=== PATIENT | female | born 1950 | race Caucasian/White ===

== ENCOUNTER → 2024-03-02 06:27 | Outpatient (REF) | payer MEDICARE, SELFPAY | LOC: RAD 06:27 | PROVIDERS: ATTENDING PHYSICIAN Specialist; FAMILY PHYSICIAN Physician Assistant | DX: N20.0 Calculus of kidney (principal) | CPT/HCPCS: 76775 ==

== ENCOUNTER → 2024-03-08 07:05 | Outpatient (REF) | payer MEDICARE, SELFPAY ==
[2024-03-08 08:07] LABS: % Basophils 1.5 % (0-2); % Eosinophils 4.9 % (0-6); % Immature Granulocytes 0.4 % (0-0.5); % Lymphocytes 45.7 % (20.5-51.1); % Monocytes 10.4 % (1.7-9.3); % Neutrophils 37.1 % (42.2-75.2); Absolute Basophils 0.1 10^3/uL (0-0.2); Absolute Eosinophils 0.2 10^3/uL (0-0.7); Absolute Lymphocytes 2.1 10^3/uL (1.2-3.4); Absolute Monocytes 0.5 10^3/uL (0.1-0.6); Absolute Neutrophils 1.7 10^3/uL (1.4-6.5); Hematocrit 36.6 % (37.0-47.0); Hemoglobin 12.2 g/dL (12.0-16.0); Mean Corp Hgb Conc. 33.3 g/dL (33.0-37.0); Mean Corpuscular Hgb 30.2 pg (27.0-31.0); Mean Corpuscular Volume 90.6 fL (81.0-99.0); Mean Platelet Volume 9.9 fL (7.4-10.4); Nucleated Red Blood Cells % 0 %; Platelet Count 241 10^3/uL (130-400); Red Blood Cell Count 4.04 10^6/uL (4.20-5.40); Red Cell Dist. Width 13.1 % (11.5-14.5); White Blood Cell Count 4.5 10^3/uL (4.8-10.8)
[2024-03-08 08:09] LABS: Urine Albumin Negative (Neg - Trace); Urine Bilirubin Negative (Negative); Urine Character Clear (Clear); Urine Color Yellow; Urine Glucose Negative (Negative); Urine Ketone Negative (Negative); Urine Leukocyte Negative (Negative); Urine Nitrite Negative (Negative); Urine Occult Blood Negative (Negative); Urine Urobilinogen Negative (Neg - 1+)
[2024-03-08 08:36] LABS: Erythrocyte Sed Rate 15 mm/hour (0-20)
[2024-03-08 09:03] LABS: Protein/creatinine Ratio 0.4; Urine Protein 11 mg/dl
[2024-03-08 09:34] LABS: C-Reactive Protein < 5.00 mg/L (0.0-10.00)
[2024-03-08 09:38] LABS: ALT (SGPT) 15 U/L (0-35); AST (SGOT) 29 U/L (14-36); Albumin 4.6 g/dl (3.5-5.0); Alkaline Phosphatase 45 U/L (38-126); Blood Urea Nitrogen 33 mg/dl (7-17); Calcium 9.7 mg/dl (8.4-10.2); Carbon Dioxide 27 mmol/L (22-30); Chloride 97 mmol/L (98-107); Glucose 78 mg/dl (70-99); Potassium 4.4 mmol/L (3.5-5.1); Sodium 134 mmol/L (135-145); Total Bilirubin 0.6 mg/dl (0.2-1.3); Total Protein 7.2 g/dl (6.3-8.2)
[2024-03-08 23:40] LABS: Complement C3 106 mg/dl (88-165)
[2024-03-10 02:14] LABS: ds-DNA Ab, IgG Reflex To Titer 14 IU (0-24)
== END ==
LOC: REG 07:05
PROVIDERS: ATTENDING PHYSICIAN Internal Medicine; FAMILY PHYSICIAN Internal Medicine
DX: E55.9 Vitamin D deficiency, unspecified (principal); G62.9 Polyneuropathy, unspecified; L25.9 Unspecified contact dermatitis, unspecified cause; M32.9 Systemic lupus erythematosus, unspecified; M35.09 Sjogren syndrome with other organ involvement; M81.0 Age-related osteoporosis without current pathological fracture; R21 Rash and other nonspecific skin eruption; R76.8 Other specified abnormal immunological findings in serum
CPT/HCPCS: 36415; 80053; 81003; 82570; 84156; 85025; 85652; 86140; 86160; 86225

== ENCOUNTER → 2024-07-17 09:12 | Outpatient (REF) | payer MEDICARE, SELFPAY | LOC: RAD 09:12 | PROVIDERS: ATTENDING PHYSICIAN Internal Medicine; FAMILY PHYSICIAN Physician Assistant | DX: M81.0 Age-related osteoporosis without current pathological fracture (principal) | CPT/HCPCS: 77080 ==

== ENCOUNTER → 2024-07-25 06:30 | Outpatient (REF) | payer MEDICARE, SELFPAY ==
[2024-07-25 07:37] LABS: ALT (SGPT) 17 U/L (0-35); AST (SGOT) 28 U/L (14-36); Albumin 4.5 g/dl (3.5-5.0); Alkaline Phosphatase 41 U/L (38-126); Blood Urea Nitrogen 28 mg/dl (7-17); Calcium 9.9 mg/dl (8.4-10.2); Carbon Dioxide 26 mmol/L (22-30); Chloride 102 mmol/L (98-107); Glucose 85 mg/dl (70-99); Potassium 4.6 mmol/L (3.5-5.1); Sodium 139 mmol/L (135-145); Total Bilirubin 0.6 mg/dl (0.2-1.3); Total Protein 6.8 g/dl (6.3-8.2)
[2024-07-25 08:33] LABS: TSH 0.51 uIU/ml (0.47-4.68)
== END ==
LOC: REG 06:30
PROVIDERS: ATTENDING PHYSICIAN Internal Medicine Endocrinology, Diabetes & Metabolism; FAMILY PHYSICIAN Physician Assistant; REFERRING PHYSICIAN Internal Medicine Critical Care Medicine
DX: E03.9 Hypothyroidism, unspecified (principal)
CPT/HCPCS: 36415; 80053; 84443

== ENCOUNTER → 2024-09-08 07:45 | Outpatient (REF) | payer MEDICARE, SELFPAY ==
[2024-09-08 09:28] LABS: % Basophils 0.9 % (0-2); % Eosinophils 3.4 % (0-6); % Immature Granulocytes 0.4 % (0-0.5); % Lymphocytes 40.9 % (20.5-51.1); % Monocytes 8.9 % (1.7-9.3); % Neutrophils 45.5 % (42.2-75.2); Absolute Basophils 0.1 10^3/uL (0-0.2); Absolute Eosinophils 0.2 10^3/uL (0-0.7); Absolute Lymphocytes 2.2 10^3/uL (1.2-3.4); Absolute Monocytes 0.5 10^3/uL (0.1-0.6); Absolute Neutrophils 2.4 10^3/uL (1.4-6.5); Hematocrit 40.7 % (37.0-47.0); Hemoglobin 13.2 g/dL (12.0-16.0); Mean Corp Hgb Conc. 32.4 g/dL (33.0-37.0); Mean Corpuscular Hgb 29.4 pg (27.0-31.0); Mean Corpuscular Volume 90.6 fL (81.0-99.0); Mean Platelet Volume 10.2 fL (7.4-10.4); Nucleated Red Blood Cells % 0 %; Platelet Count 261 10^3/uL (130-400); Red Blood Cell Count 4.49 10^6/uL (4.20-5.40); Red Cell Dist. Width 13.2 % (11.5-14.5); White Blood Cell Count 5.3 10^3/uL (4.8-10.8)
[2024-09-08 09:45] LABS: C-Reactive Protein < 5.00 mg/L (0.0-10.00); Urine Albumin Negative (Neg - Trace); Urine Bilirubin Negative (Negative); Urine Character Slightly Cloudy (Clear); Urine Color Yellow; Urine Glucose Negative (Negative); Urine Ketone Negative (Negative); Urine Leukocyte 2+ (Negative); Urine Nitrite Negative (Negative); Urine Occult Blood Negative (Negative); Urine Urobilinogen Negative (Neg - 1+)
[2024-09-08 10:12] LABS: Vitamin D, 25-OH*** 57.6 ng/mL (30-80)
[2024-09-08 10:18] LABS: ALT (SGPT) 19 U/L (0-35); AST (SGOT) 28 U/L (14-36); Albumin 4.8 g/dl (3.5-5.0); Alkaline Phosphatase 38 U/L (38-126); Blood Urea Nitrogen 25 mg/dl (7-17); Calcium 9.7 mg/dl (8.4-10.2); Carbon Dioxide 24 mmol/L (22-30); Chloride 103 mmol/L (98-107); Glucose 75 mg/dl (70-99); Potassium 4.7 mmol/L (3.5-5.1); Sodium 141 mmol/L (135-145); Total Bilirubin 0.5 mg/dl (0.2-1.3); Total Protein 7.4 g/dl (6.3-8.2)
[2024-09-08 10:28] LABS: Protein/creatinine Ratio 0.2; Urine Protein 11 mg/dl
[2024-09-08 10:39] LABS: Erythrocyte Sed Rate 14 mm/hour (0-20)
[2024-09-08 10:43] LABS: Urine Bacteria Many (Negative); Urine Red Blood Cell 0-2 /HPF (0-2); Urine Squamous Cell 0-2 /LPF (Few); Urine White Cell 90-100 /HPF (0-5)
[2024-09-10 01:59] LABS: DNase-B Antibody 94 U/mL (<=259)
[2024-09-10 12:40] LABS: Beta-2-Microglobulin 2.6 mg/L (<=3.0)
[2024-09-11 07:34] LABS: Complement C3 134 mg/dl (88-165); IgA 112 mg/dl (70-400); IgG 878 mg/dl (700-1600); IgM 87 mg/dl (40-230)
== END ==
LOC: REG 07:45
PROVIDERS: ATTENDING PHYSICIAN Internal Medicine; FAMILY PHYSICIAN Physician Assistant; REFERRING PHYSICIAN Internal Medicine Endocrinology, Diabetes & Metabolism
DX: M35.09 Sjogren syndrome with other organ involvement (principal); M81.0 Age-related osteoporosis without current pathological fracture
CPT/HCPCS: 36415; 80053; 81003; 81015; 82232; 82306; 82570; 82784; 83521; 84155; 84156; 84165; 85025; 85652; 86140; 86160; 86215; 86334

== ENCOUNTER → 2024-10-02 07:20 | Outpatient (REF) | payer MEDICARE, SELFPAY | LOC: WDC 07:20 | PROVIDERS: ATTENDING PHYSICIAN Obstetrics & Gynecology Gynecology; FAMILY PHYSICIAN Physician Assistant | DX: Z12.31 Encounter for screening mammogram for malignant neoplasm of breast (principal) | CPT/HCPCS: 77063; 77067 ==

== ENCOUNTER → 2024-11-01 07:29 | Outpatient (REF) | payer MEDICARE, SELFPAY ==
[2024-11-01 08:41] LABS: HDL Cholesterol 73 mg/dl; LDL Cholesterol, Calculated 140 mg/dl; Total Cholesterol 235 mg/dl (50-199); Triglyceride 113 mg/dl (10-149); Very Low Density Lipoprotein 22 mg/dl (0-30)
== END ==
LOC: REG 07:29
PROVIDERS: ATTENDING PHYSICIAN Physician Assistant
DX: Z00.00 Encounter for general adult medical examination without abnormal findings (principal); Z13.220 Encounter for screening for lipoid disorders; I10 Essential (primary) hypertension
CPT/HCPCS: 36415; 80061

== ENCOUNTER → 2024-11-17 10:43 | Outpatient (REF) | payer MEDICARE, SELFPAY | LOC: RAD 10:43 | PROVIDERS: ATTENDING PHYSICIAN Nurse Practitioner Adult Health; FAMILY PHYSICIAN Physician Assistant | DX: J47.9 Bronchiectasis, uncomplicated (principal) | CPT/HCPCS: 71046 ==

== ENCOUNTER → 2025-03-07 06:28 | Outpatient (REF) | payer MEDICARE, SELFPAY ==
[2025-03-07 07:09] LABS: Hematocrit 40.2 % (37.0-47.0); Hemoglobin 13.1 g/dL (12.0-16.0)
[2025-03-07 07:49] LABS: ALT (SGPT) 19 U/L (0-35); AST (SGOT) 25 U/L (14-36); Albumin 4.6 g/dl (3.5-5.0); Alkaline Phosphatase 44 U/L (38-126); Blood Urea Nitrogen 26 mg/dl (7-17); Calcium 9.6 mg/dl (8.4-10.2); Carbon Dioxide 25 mmol/L (22-30); Chloride 104 mmol/L (98-107); Direct Bilirubin 0.1 mg/dl (0.0-0.4); Glucose 96 mg/dl (70-99); Intact PTH 34.2 pg/ml (13.6-85.8); Potassium 4.5 mmol/L (3.5-5.1); Sodium 139 mmol/L (135-145); Total Bilirubin 0.6 mg/dl (0.2-1.3); Total Protein 7.1 g/dl (6.3-8.2); eGFR 52.08
[2025-03-07 07:52] LABS: Vitamin D, 25-OH*** 66.6 ng/mL (30-80)
[2025-03-07 16:16] LABS: Protein/creatinine Ratio 0.3; Urine Protein 9 mg/dl
== END ==
LOC: REG 06:28
PROVIDERS: ATTENDING PHYSICIAN Specialist; FAMILY PHYSICIAN Physician Assistant; REFERRING PHYSICIAN Internal Medicine
DX: N18.31 Chronic kidney disease, stage 3a (principal); M81.0 Age-related osteoporosis without current pathological fracture
CPT/HCPCS: 36415; 80053; 82248; 82306; 82570; 83970; 84156; 85014; 85018

== ENCOUNTER → 2025-03-28 15:09 | Outpatient (REF) | payer MEDICARE, SELFPAY | LOC: CLAB 15:09 | PROVIDERS: ATTENDING PHYSICIAN Obstetrics & Gynecology | DX: N90.89 Other specified noninflammatory disorders of vulva and perineum (principal) | CPT/HCPCS: 88305 ==

== ENCOUNTER → 2025-05-02 07:41 | Outpatient (REF) | payer MEDICARE, SELFPAY ==
[2025-05-02 09:55] LABS: Blood Urea Nitrogen 36 mg/dl (7-17); Calcium 9.4 mg/dl (8.4-10.2); Carbon Dioxide 27 mmol/L (22-30); Chloride 107 mmol/L (98-107); Glucose 86 mg/dl (70-99); Potassium 4.8 mmol/L (3.5-5.1); Sodium 137 mmol/L (135-145); eGFR 52.08
== END ==
LOC: REG 07:41
PROVIDERS: ATTENDING PHYSICIAN Specialist; FAMILY PHYSICIAN Physician Assistant
DX: N13.30 Unspecified hydronephrosis (principal); N20.0 Calculus of kidney; N18.31 Chronic kidney disease, stage 3a
CPT/HCPCS: 36415; 80048

== ENCOUNTER → 2025-08-20 06:36 | Outpatient (REF) | payer MEDICARE, SELFPAY ==
[2025-08-20 08:18] LABS: ALT (SGPT) 21 U/L (0-35); AST (SGOT) 23 U/L (14-36); Albumin 4.2 g/dl (3.5-5.0); Alkaline Phosphatase 42 U/L (38-126); Blood Urea Nitrogen 23 mg/dl (7-17); Calcium 9.4 mg/dl (8.4-10.2); Carbon Dioxide 27 mmol/L (22-30); Chloride 104 mmol/L (98-107); Glucose 82 mg/dl (70-99); Potassium 4.5 mmol/L (3.5-5.1); Sodium 136 mmol/L (135-145); Total Protein 6.8 g/dl (6.3-8.2); eGFR 58.39
[2025-08-20 10:44] LABS: Vitamin D, 25-OH*** 56.2 ng/mL (30-80)
[2025-08-20 10:58] LABS: TSH 0.36 uIU/ml (0.47-4.68)
== END ==
LOC: REG 06:36
PROVIDERS: ATTENDING PHYSICIAN Internal Medicine Endocrinology, Diabetes & Metabolism
DX: E55.9 Vitamin D deficiency, unspecified (principal); E03.9 Hypothyroidism, unspecified
CPT/HCPCS: 36415; 80053; 82306; 84443

== ENCOUNTER → 2025-09-18 06:25 | Outpatient (REF) | payer MEDICARE, SELFPAY ==
[2025-09-18 08:58] LABS: ALT (SGPT) 22 U/L (0-35); AST (SGOT) 23 U/L (14-36); Albumin 4.5 g/dl (3.5-5.0); Alkaline Phosphatase 41 U/L (38-126); Blood Urea Nitrogen 30 mg/dl (7-17); Calcium 9.3 mg/dl (8.4-10.2); Carbon Dioxide 27 mmol/L (22-30); Chloride 107 mmol/L (98-107); Glucose 86 mg/dl (70-99); Potassium 4.9 mmol/L (3.5-5.1); Sodium 142 mmol/L (135-145); Total Protein 7.2 g/dl (6.3-8.2); eGFR 58.39
[2025-09-18 09:11] LABS: Vitamin D, 25-OH*** 68.1 ng/mL (30-80)
== END ==
LOC: REG 06:25
PROVIDERS: ATTENDING PHYSICIAN Physician Assistant; FAMILY PHYSICIAN Physician Assistant
DX: E55.9 Vitamin D deficiency, unspecified (principal); Z79.899 Other long term (current) drug therapy
CPT/HCPCS: 36415; 80053; 82306

== ENCOUNTER → 2025-10-04 07:15 | Outpatient (REF) | payer MEDICARE, SELFPAY | LOC: WDC 07:15 | PROVIDERS: ATTENDING PHYSICIAN Obstetrics & Gynecology Gynecology; FAMILY PHYSICIAN Physician Assistant | DX: Z12.31 Encounter for screening mammogram for malignant neoplasm of breast (principal) | CPT/HCPCS: 77063; 77067 ==

== ENCOUNTER 2025-10-09 06:30 | Day surgery (SDC) | payer MEDICARE, SELFPAY ==
[2025-10-03 14:10] VITALS: BMI 23.1
[2025-10-09] VITALS (11 sets, daily range): BP systolic 120–159; BP diastolic 52–89; BMI 23.1
[2025-10-09] MEDS: NORMOSOL-R/PLASMALYTE-A 1000 IV (09:44)
[2025-10-09] MEDS: DILAUDID 0.25 MG IV (11:28)
[2025-10-09] MEDS: MOTRIN 600 MG PO (12:45)
== END 2025-10-09 13:07 | disposition home or self-care (01) ==
LOC: SDS 06:30
PROVIDERS: ATTENDING PHYSICIAN Obstetrics & Gynecology
DX: N81.6 Rectocele (principal); N39.3 Stress incontinence (female) (male); N36.41 Hypermobility of urethra
CPT/HCPCS: 57250; 86900; 86901

== ENCOUNTER → 2025-10-25 09:37 | Outpatient (REF) | payer MEDICARE, SELFPAY | LOC: CLAB 09:37 | PROVIDERS: ATTENDING PHYSICIAN Physician Assistant | DX: N39.0 Urinary tract infection, site not specified (principal) | CPT/HCPCS: 87077; 87086; 87186 ==